=== PATIENT | male | born 1980 | race Caucasian/White ===

== ENCOUNTER 2018-02-06 08:52 | Observation (INO) ==
--- NOTE | 2018-02-06 09:00 | Emergency Department Note ---
ED Disposition Clinical Impression: Chest pain Disposition: Still a Patient Condition on Discharge: Good - Critical Care Critical Care Time: No Attestation: On , the high probability of a clinically significant, sudden or life th reatening deterioration of the following system(s) required my full and direct attention, intervention and personal management. The time I documented below is in addition to time spent performing reported procedures but includes the following listed in this critical care notation. Medical Decision Making - Medical Records MR Comment: [id number] call out to [facility], pt states pain free, then states maybe some jaw pain still, then says no. additional pain meds ordered. pt with some obesity, family history +, smokes, borderline dm, htn, ? chol. plan admit. 1056 linda Zabala, abelardo angiogram, desires cardiology consult. linda cr level. call out to cardiology. 1103 linda Hung they will see patient. 110[facility] cardiology MLP seeing patient now. - Bony Inquiry Pt receiving controlled substance: No Vital Signs: 02/06/18 08:53 02/06/18 09:03 02/06/18 09:30 Temperature 98 F 98 F Temperature Source Oral Oral Pulse Rate Pulse Rate [Left Radial] 76 76 79 Respiratory Rate 16 16 16 Blood Pressure Blood Pressure [Right Arm] 152/108 152/108 148/93 Blood Pressure Mean [Right Arm] 122 122 111 Blood Pressure Source Blood Pressure Source [Right Arm] Automatic Cuff Automatic Cuff Automatic Cuff Blood Pressure Position Blood Pressure Position [Right Arm] Sitting Sitting Sitting 02 Sat by Pulse Oximetry 97 97 96 Oxygen Delivery Method Room Air Room Air Room Air 02/06/18 10:10 02/06/18 11:01 02/06/18 11:37 Temperature Temperature Source Pulse Rate Pulse Rate [Left Radial] 81 75 76 Respiratory Rate Blood Pressure Blood Pressure [Right Arm] 140/89 130/91 128/85 Blood Pressure Mean [Right Arm] 106 104 99 Blood Pressure Source Blood Pressure Source [Right Arm] Automatic Cuff Automatic Cuff Automatic Cuff Blood Pressure Position Blood Pressure Position [Right Arm] Sitting Sitting Sitting 02 Sat by Pulse Oximetry 98 99 99 Oxygen Delivery Method Room Air Room Air 02/06/18 12:05 Temperature 98 F Temperature Source Oral Pulse Rate 79 Pulse Rate [Left Radial] Respiratory Rate 16 Blood Pressure 143/93 Blood Pressure [Right Arm] Blood Pressure Mean [Right Arm] Blood Pressure Source Automatic Cuff Blood Pressure Source [Right Arm] Blood Pressure Position Sitting Blood Pressure Position [Right Arm] 02 Sat by Pulse Oximetry Oxygen Delivery Method Room Air - Lab Data Lab Results 02/06/18 08:55: WBC 14.4 H, RBC 6.17, Hgb 17.5, Hct 52.9 H, MCV 85.7, MCH 28.4, MCHC 33.1, RDW 14.0, Plt Count 229, MPV 7.8, Neut % (Auto) 67.8, Lymph % (Auto) 23.1, [place] % (Auto) 6.5, Eos % (Auto) 2.0, Baso % (Auto) 0.5, Neut # (Auto) 9.8 H, Lymph # (Auto) 3.3, [place] # (Auto) 0.9, Eos # (Auto) 0.3, Baso # (Auto) 0.1 02/06/18 08:55: Sodium 139, Potassium 4.2, Chloride 105, Carbon Dioxide 22, Anion Gap 16.2 H, BUN 23 H, Creatinine 1.90 H, Estimated Creat Clear 82, Estimated GFR 40 L, Est GFR ( Amer) 49 L, Glucose 139 H, Calcium 9.6, Troponin I < 0.02 Result diagrams: 02/06/18 08:55 02/06/18 08:55 Orders (Tests/Meds): ED MEDICATIONS Generic Name Dose Route Start Last Admin Trade Name Freq PRN Reason Stop Dose Admin Diphenhydramine HCl 50 mg 02/06/18 12:09 Benadryl 50mg/1ml Vial IV 02/06/18 12:10 ONCE ONE Fentanyl Citrate 25 mcg 02/06/18 12:09 Fentanyl 250mcg/5ml Vial IV 02/07/18 12:10 Q3MINP PRN Moderate to Severe Pain Fentanyl Citrate 50 mcg 02/06/18 12:09 Fentanyl 250mcg/5ml Vial IV 02/07/18 12:10 Q3MINP PRN Moderate to Severe Pain Fentanyl Citrate 25 mcg 02/06/18 12:17 Fentanyl 250mcg/5ml Vial IV 02/07/18 11:45 Q3MINP PRN Moderate to Severe Pain Fentanyl Citrate 50 mcg 02/06/18 12:17 Fentanyl 250mcg/5ml Vial IV 02/07/18 11:45 Q3MINP PRN Moderate to Severe Pain Flumazenil 0.2 mg 02/06/18 12:09 Romazicon 0.1mg/Ml 5ml Vial IV 02/06/18 23:00 NEEDED PRN Sedation Flumazenil 0.2 mg 02/06/18 12:17 Romazicon 0.1mg/Ml 5ml Vial IV 02/06/18 23:00 NEEDED PRN Sedation Heparin Sodium (Porcine) 10,000 unit 02/06/18 12:09 Heparin 1,000 Units/Ml 10ml Vial (Certified Registered Nurse Practitioner) IV 02/06/18 16:10 NEEDED PRN Emergency [employer] Heparin Sodium/Sodium Chloride 3,000 unit 02/06/18 12:09 Heparin 1000 Units/500ml Ns (Certified Registered Nurse Practitioner) IV 02/06/18 12:10 ONCE ONE Sodium Chloride 1,000 mls @ 125 mls/hr 02/06/18 11:30 02/06/18 11:24 Sod Chlor 0.9% 1000ml Bag IV 03/08/18 11:29 125 mls/hr .Q8H SHANTELLE Administration Sodium Chloride 1,000 mls @ 25 mls/hr 02/06/18 12:15 Sod Chlor 0.9% 1000ml Bag IV 02/07/18 12:10 .Q25H SHANTELLE Lidocaine HCl 20 ml 02/06/18 12:09 Lidocaine 1% 20ml Mdv IJ 02/06/18 12:10 ONCE ONE Midazolam HCl 1 mg 02/06/18 12:09 Midazolam 2mg/2ml Vial IV 02/07/18 12:10 Q3MINP PRN Sedation Midazolam HCl 1 mg 02/06/18 12:09 Midazolam 1mg/Ml 5ml Vial IV 02/07/18 12:10 Q3MINP PRN Sedation Midazolam HCl 1 mg 02/06/18 12:17 Midazolam 2mg/2ml Vial IV 02/07/18 11:45 Q3MINP PRN Sedation Midazolam HCl 1 mg 02/06/18 12:17 Midazolam 1mg/Ml 5ml Vial IV 02/07/18 11:45 Q3MINP PRN Sedation Naloxone HCl 0.4 mg 02/06/18 12:09 Narcan 0.4mg/Ml Vial IV 02/07/18 12:10 Q5MINP PRN Decreased respirations Naloxone HCl 0.4 mg 02/06/18 12:17 Narcan 0.4mg/Ml Vial IV 02/07/18 11:45 Q5MINP PRN Decreased respirations Nitroglycerin 0.4 mg 02/06/18 08:56 Nitrostat 0.4mg Sl Tablet SL 03/08/18 08:55 Q5MINP PRN Chest Pain Nitroglycerin 800 mcg 02/06/18 12:09 Nitroglycerin 800mcg/8ml Syr (Certified Registered Nurse Practitioner) IV 02/07/18 12:10 NEEDED PRN Emergency [employer] Super[employer] Verapamil HCl 2.5 mg 02/06/18 12:09 Verapamil 2.5mg/Ml 2ml Vial IV 02/06/18 12:10 ONCE ONE Discontinued Medications Generic Name Dose Route Start Last Admin Trade Name Freq PRN Reason Stop Dose Admin Aspirin 324 mg 02/06/18 08:54 02/06/18 09:06 Aspirin 81mg Chewable Tablet PO 02/06/18 08:55 324 mg ONCE ONE Administration Fentanyl Citrate 25 mcg 02/06/18 11:45 Fentanyl 250mcg/5ml Vial IV 02/07/18 11:45 Q3MINP PRN Moderate to Severe Pain Fentanyl Citrate 50 mcg 02/06/18 11:45 Fentanyl 250mcg/5ml Vial IV 02/07/18 11:45 Q3MINP PRN Moderate to Severe Pain Flumazenil 0.2 mg 02/06/18 11:45 Romazicon 0.1mg/Ml 5ml Vial IV 02/06/18 23:00 NEEDED PRN Sedation Midazolam HCl 1 mg 02/06/18 11:45 Midazolam 2mg/2ml Vial IV 02/07/18 11:45 Q3MINP PRN Sedation Midazolam HCl 1 mg 02/06/18 11:45 Midazolam 1mg/Ml 5ml Vial IV 02/07/18 11:45 Q3MINP PRN Sedation Morphine Sulfate 2 mg 02/06/18 10:51 02/06/18 11:05 Morphine 4mg/Ml Syringe IV 02/06/18 10:52 2 mg ONCE ONE Administration Naloxone HCl 0.4 mg 02/06/18 11:45 Narcan 0.4mg/Ml Vial IV 02/07/18 11:45 Q5MINP PRN Decreased respirations Nitroglycerin 0.5 gm 02/06/18 10:52 02/06/18 11:05 Nitroglycerin 1 Inch Oint Udp TD 02/06/18 10:53 0.5 gm ONCE ONE Administration Ondansetron HCl 4 mg 02/06/18 10:51 02/06/18 11:05 Zofran 4mg/2ml Vial IV 02/06/18 10:52 4 mg ONCE ONE Administration Ticagrelor 180 mg 02/06/18 11:44 02/06/18 11:47 Brilinta 90mg Tablet PO 02/06/18 11:45 180 mg ONCE ONE Administration ORDERS Category Date Time Status Basic Metabolic Panel Stat Lab 02/06/18 12:09 Ordered Complete Blood Count Auto Diff Stat Lab 02/06/18 12:09 Ordered - ECG Data Tracing #1 ER EKG read by myself shows normal sinus rhythm rate of 77, no STEMI, normal axis, no QT prolongation, unremarkable EKG no wandering baseline EKG Tracing #2 ER EKG read by myself shows normal sinus rhythm rate of 77, no STEMI, normal axis, no QT prolongation, unremarkable EKG no wandering baseline EKG General Adult HPI - General Chief complaint: Chest Pain Stated complaint: chest pain Time Seen by Provider: 02/06/18 08:57 - History of Present Illness HPI narrative: Patient states that onset of achy chest pain 45 minutes prior to arrival was sweating and shortness of breath no complaint of nausea now but when the pain came on he did feel like he was going to vomit. Denies any pleuritic pain. No previous heart history does have history of hypertension pain does radiate up to his jaw. 4 over 10 currently - Related Data Home Medications Medication Instructions Recorded Confirmed Hydralazine HCl [Hydralazine HCl 25 mg PO DAILY 02/06/18 02/06/18 25mg Tablet] Losartan Potassium 25 mg PO DAILY 02/06/18 02/06/18 Metoprolol Succinate [Toprol XL 50 mg PO BID 02/06/18 02/06/18 50mg Tablet] Mycophenolate Mofetil [Cellcept] 250 mg PO BID 02/06/18 02/06/18 Tacrolimus [Prograf] 1 mg PO BID 02/06/18 02/06/18 Trazodone HCl 100 mg PO HS 02/06/18 02/06/18 Allergies Allergy/AdvReac Type Severity Reaction Status Date / Time From [facility] Allergy Unknown Uncoded 02/06/18 09:05 [facility] History I have reviewed the patient's past medical history: Yes ROS Obtained: Yes All systems reviewed & no additional complaints Physical Exam General Appearance: Diaphoretic Head: Normocephalic, without obvious abnormality, atraumatic. Eyes: conjunctiva/corneas clear ENT: Mucous membranes moist. Neck: No jugular venous distention. Cardiac: regular rate and rhythm Lungs: Clear to auscultation bilaterally Abdomen: Nontender, Nondistended, positive bowel sounds, no rebound : No CVA tenderness Extremities: no edema Musculoskeletal: No chest wall tenderness No Homans sign No calf tenderness No swelling in legs Skin: No rashes or lesions to exposed skin. Neurologic: Alert. No gross focal deficits Psychiatric: Normal affect - General General appearance: alert - Respiratory Respiratory exam: Present: normal lung sounds bilaterally - Cardiovascular Cardiovascular exam: Present: regular rate - Neurological Exam Neurological exam: Present: alert
[2018-02-06 09:12] LABS: Basophils # 0.1 K/mm3 (0-0.2); Basophils % 0.5 % (0.1-2.0); Eosinophils # 0.3 K/mm3 (0.0-0.4); Hematocrit 52.9 % (42.0-52.0); Hemoglobin 17.5 g/dL (14.1-18.0); Lymphocytes # 3.3 K/mm3 (0.7-4.5); Lymphocytes % 23.1 K/mm3 (10-50); Mean Corpuscular HGB Conc 33.1 g/dL (31.8-35.4); Mean Corpuscular Hemoglobin 28.4 pg (27.0-31.2); Mean Corpuscular Volume 85.7 fl (80-94); Mean Platelet Volume 7.8 fl (7.4-10.4); Monocytes # 0.9 K/mm3 (0.1-1.0); Monocytes % 6.5 % (1.7-9.3); Neutrophils # 9.8 K/mm3 (1.8-7.8); Neutrophils % 67.8 % (37.0-80.0); Platelet Count 229 K/mm3 (142-424); Red Blood Count 6.17 M/mm3 (4.60-6.20); White Blood Count 14.4 K/mm3 (4.8-10.8)
[2018-02-06 09:25] LABS: Anion Gap 16.2 mEq/L (5-15); Blood Urea Nitrogen 23 mg/dL (7-18); Calcium 9.6 mg/dL (8.5-10.1); Carbon Dioxide 22 mmol/L (21.0-32.0); Chloride 105 mmol/L (98-107); Glucose 139 mg/dL (74-106); Potassium 4.2 mmoL/L (3.5-5.1); Sodium 139 mmol/L (136-145)
--- NOTE | 2018-02-06 11:36 | Consult Report ---
History of Present Illness Consult date: 02/06/18 Requesting physician: Angel Gagnon Consult reason: chest pain Chief complaint: chest pain Additional Medical History:: 1. Hypertension since age 18 A. History of renal failure requiring dialysis B. Status post living donor renal transplant approximately 2009, on CellCept and Prograf therapy with routine follow-up by nephrology 2. Tobacco use, 1 pack per day, since age 16 3. Strong family history of coronary artery disease in grandfather and grandfather's siblings in their 30s and 40s 4. Hyperlipidemia 5. Elevated blood sugars, evaluation ongoing per PCP History of present illness: 37-year-old white male with hypertension, tobacco use and history of renal failure requiring transplant was seen in the emergency department today for recurrent episodes of chest pain with jaw pain. Patient states symptoms started after chasing his dog this morning. Symptoms improved with rest but returned at rest and resolved with nitroglycerin tablet and paste combination in the ER. Patient was reportedly pale with diaphoresis on arrival to the ER which improved significantly with resolution of chest pain. Initial troponin is normal. EKG is sinus rhythm with mild ST abnormalities that improved on second EKG just 7 min later. Patient is currently pain-free with no jaw pain on nitroglycerin paste. Dr. Crandall did see the patient in the ER and recommended cardiac catheterization and the patient agrees to proceed. Risks, benefits and procedure explained to the patient. [facility] History Medical History: Reports:: Hyperlipidemia, Hypertension, Renal Disease - *Social History Smoking Status: Current every day smoker Tobacco Type: cigarettes Alcohol Intake: never - Psychiatric History Expresses thoughts of harming self/others: None Suicide Plan Description: No Plan Meds Home Medications Medication Instructions Recorded Confirmed Type Hydralazine HCl [Hydralazine HCl 25 mg PO DAILY 02/06/18 02/06/18 History 25mg Tablet] Losartan Potassium 25 mg PO DAILY 02/06/18 02/06/18 History Metoprolol Succinate [Toprol XL 50 mg PO BID 02/06/18 02/06/18 History 50mg Tablet] Mycophenolate Mofetil [Cellcept] 250 mg PO BID 02/06/18 02/06/18 History Tacrolimus [Prograf] 1 mg PO BID 02/06/18 02/06/18 History Trazodone HCl 100 mg PO HS 02/06/18 02/06/18 History Allergies Allergy/AdvReac Type Severity Reaction Status Date / Time From [facility] Allergy Unknown Uncoded 02/06/18 09:05 Review of Systems - *Cardiovascular Reports chest pain, Reports excessive sweating, Reports shortness of breath with activity - *Respiratory Reports shortness of breath with activity - *Gastrointestinal Denies abdominal pain - *Musculoskeletal Denies joint pain Exam Vital signs and Labs for Last 24 Hours: Temp Pulse Resp BP Pulse Ox 98 F 75 16 130/91 99 02/06/18 09:03 02/06/18 11:01 02/06/18 09:30 02/06/18 11:01 02/06/18 11:01 Laboratory Results - last 24 hr 02/06/18 08:55: WBC 14.4 H, RBC 6.17, Hgb 17.5, Hct 52.9 H, MCV 85.7, MCH 28.4, MCHC 33.1, RDW 14.0, Plt Count 229, MPV 7.8, Neut % (Auto) 67.8, Lymph % (Auto) 23.1, [place] % (Auto) 6.5, Eos % (Auto) 2.0, Baso % (Auto) 0.5, Neut # (Auto) 9.8 H, Lymph # (Auto) 3.3, [place] # (Auto) 0.9, Eos # (Auto) 0.3, Baso # (Auto) 0.1 02/06/18 08:55: Sodium 139, Potassium 4.2, Chloride 105, Carbon Dioxide 22, Anion Gap 16.2 H, BUN 23 H, Creatinine 1.90 H, Estimated Creat Clear 82, Estimated GFR 40 L, Est GFR ( Amer) 49 L, Glucose 139 H, Calcium 9.6, Troponin I < 0.02 I & O for Last 24 hours: Intake & Output 02/03/18 02/04/18 02/05/18 02/06/18 11:59 11:59 11:59 11:59 Weight 241 lb - *Routine Neck Exam Present: supple. Absent: lymphadenopathy - *Routine Respiratory Exam Present: CTA bilaterally. Absent: rhonchi, wheezes - *Routine Cardiovascular Exam Present: RRR. Absent: murmur, gallop, rubs - *Routine Extremities Exam Absent: cyanosis, clubbing, edema - *Routine Neurological Exam Present: alert, oriented X3, moving all extremities Assessment and Plan (1) Acute coronary syndrome Current visit: Yes Status: Acute Category: Medical Code(s): I24.9 - Acute ischemic heart disease, unspecified (2) Hypertension Current visit: Yes Status: Acute Category: Medical Code(s): I10 - Essential (primary) hypertension (3) Tobacco use Current visit: Yes Status: Acute Category: Social Hx Code(s): Z72.0 - Tobacco use (4) History of renal transplant Current visit: Yes Status: Acute Category: Medical Code(s): Z94.0 - Kidney transplant status (5) Family history of early CAD Current visit: Yes Status: Acute Category: Medical Code(s): Z82.49 - Family history of ischemic heart disease and other diseases of the circulatory system - Assessment and plan all Dx Assessment and Plan for all problems:: 1. Patient did receive aspirin this morning and will add Brilinta 180 mg now. Continue nitroglycerin paste. Continue home medications of metoprolol and losartan. 2. Patient will go for left heart catheterization for further evaluation. Recommendations pending results.
--- NOTE | 2018-02-06 13:38 | History & Physical Report ---
*Admission Date: 02/06/18 *Chief complaint: Chest pain *History of present illness: 1. Hypertension since age 18 A. History of renal failure requiring dialysis B. Status post living donor renal transplant approximately 2009, on CellCept and Prograf therapy with routine follow-up by nephrology 2. Tobacco use, 1 pack per day, since age 16 3. Strong family history of coronary artery disease in grandfather and grandfather's siblings in their 30s and 40s 4. Hyperlipidemia 5. Elevated blood sugars, evaluation ongoing per PCP History of present illness: 37-year-old white male with hypertension, tobacco use and history of renal failure requiring transplant was seen in the emergency department today for recurrent episodes of chest pain with jaw pain. Patient states symptoms started after chasing his dog this morning. Symptoms improved with rest but returned at rest and resolved with nitroglycerin tablet and paste combination in the ER. Patient was reportedly pale with diaphoresis on arrival to the ER which improved significantly with resolution of chest pain. Initial troponin is normal. EKG is sinus rhythm with mild ST abnormalities that improved on second EKG just 7 min later. Patient is currently pain-free with no jaw pain on nitroglycerin paste. Dr. Crandall did see the patient in the ER and recommended cardiac catheterization and the patient agreed to proceed. [facility] History Medical History: Reports:: Hyperlipidemia, Hypertension, Renal Disease - *Social History Smoking Status: Current every day smoker Tobacco Type: cigarettes Alcohol Intake: never - Psychiatric History Expresses thoughts of harming self/others: None Suicide Plan Description: No Plan Review of Systems - Review of Systems Review of systems:: pertinent systems reviewed and negative unless documented below - Constitutional Denies body ache(s), Denies chills - Eyes Denies blind spots - ENT Denies bleeding gums, Denies change in voice - *Cardiovascular Reports chest pain, Reports chest pain with activity, Reports shortness of breath, Reports shortness of breath with activity, Denies irregular heart rhythm, Denies leg swelling - *Respiratory Denies change in phlegm color, Denies chest congestion, Denies cough - *Gastrointestinal Denies abdominal pain Meds Home Medications Medication Instructions Recorded Confirmed Type Hydralazine HCl [Hydralazine HCl 25 mg PO DAILY 02/06/18 02/06/18 History 25mg Tablet] Losartan Potassium 25 mg PO DAILY 02/06/18 02/06/18 History Metoprolol Succinate [Toprol XL 50 mg PO BID 02/06/18 02/06/18 History 50mg Tablet] Mycophenolate Mofetil [Cellcept] 250 mg PO BID 02/06/18 02/06/18 History Tacrolimus [Prograf] 1 mg PO BID 02/06/18 02/06/18 History Trazodone HCl 100 mg PO HS 02/06/18 02/06/18 History Allergies Allergy/AdvReac Type Severity Reaction Status Date / Time pseudoephedrine Allergy Unknown Verified 02/06/18 12:35 allergy reaction Exam Vital signs and Labs for Last 24 Hours: Temp Pulse Resp BP Pulse Ox 98 F 76 12 128/90 98 02/06/18 13:30 02/06/18 13:30 02/06/18 13:30 02/06/18 13:30 02/06/18 13:30 Laboratory Results - last 24 hr 02/06/18 08:55: WBC 14.4 H, RBC 6.17, Hgb 17.5, Hct 52.9 H, MCV 85.7, MCH 28.4, MCHC 33.1, RDW 14.0, Plt Count 229, MPV 7.8, Neut % (Auto) 67.8, Lymph % (Auto) 23.1, [place] % (Auto) 6.5, Eos % (Auto) 2.0, Baso % (Auto) 0.5, Neut # (Auto) 9.8 H, Lymph # (Auto) 3.3, [place] # (Auto) 0.9, Eos # (Auto) 0.3, Baso # (Auto) 0.1 02/06/18 08:55: Sodium 139, Potassium 4.2, Chloride 105, Carbon Dioxide 22, Anion Gap 16.2 H, BUN 23 H, Creatinine 1.90 H, Estimated Creat Clear 82, Estimated GFR 40 L, Est GFR ( Amer) 49 L, Glucose 139 H, Calcium 9.6, Troponin I < 0.02 I & O for Last 24 hours: Intake & Output 02/04/18 02/05/18 02/06/18 02/07/18 11:59 11:59 11:59 11:59 Weight 241 lb 241 lb 7 oz Narrative: Patient examined post left heart cath, appropriate dressing on left radial artery area. Lungs are clear, heart rate regular without murmurs. Abdomen soft nontender. Oropharynx clear, no JVD, ENT exam otherwise clear. No clubbing, cyanosis or edema. Assessment and Plan (1) Acute coronary syndrome Current visit: Yes Status: Acute Category: Medical Code(s): I24.9 - Acute ischemic heart disease, unspecified (2) Hypertension Current visit: Yes Status: Acute Category: Medical Code(s): I10 - Essential (primary) hypertension (3) Tobacco use Current visit: Yes Status: Acute Category: Social Hx Code(s): Z72.0 - Tobacco use (4) History of renal transplant Current visit: Yes Status: Acute Category: Medical Code(s): Z94.0 - Kidney transplant status (5) Family history of early CAD Current visit: Yes Status: Acute Category: Medical Code(s): Z82.49 - Family history of ischemic heart disease and other diseases of the circulatory system - Assessment and plan all Dx Assessment and Plan for all problems:: Patient doing well status post left heart cath. Anticipate discharge tomorrow if remains stable. Continue current medications. Follow creatinine closely tonight and tomorrow morning.
--- NOTE | 2018-02-06 15:42 | Pharmacy Consult Notes ---
[facility] Pharmacy VTE Monitoring - Patient Demographics Allergies/Adverse Reactions: Patient Allergies pseudoephedrine Allergy (Verified 02/06/18 12:35) Unknown allergy reaction Height: 1.75 m Weight: 109.514 kg Patient Problems: Current Active Problems Chest pain (Acute) Acute coronary syndrome (Acute) Hypertension (Acute) Tobacco use (Acute) History of renal transplant (Acute) Family history of early CAD (Acute) - VTE Risk Labs: VTE Related Lab Results Hgb 17.5 g/dL (14.1-18.0) 02/06/18 08:55 Hct 52.9 % (42.0-52.0) H 02/06/18 08:55 Plt Count 229 K/mm3 (142-424) 02/06/18 08:55 BUN 23 mg/dL (7-18) H 02/06/18 08:55 Creatinine 1.90 mg/dL (0.70-1.30) H 02/06/18 08:55 Estimated Creat Clear 82 mL/min (0-300) 02/06/18 08:55 Was VTE Risk Assessment Performed: Yes VTE Risk Level: Very Low Risk - Prophylaxis Location of Applied Device: Refused
[2018-02-07 06:49] LABS: Anion Gap 12.4 mEq/L (5-15); Potassium 4.4 mmoL/L (3.5-5.1)
[2018-02-07 07:18] LABS: Calcium 8.6 mg/dL (8.5-10.1)
[2018-02-07 07:22] LABS: Basophils % 0.2 % (0.1-2.0); Eosinophils # 0.1 K/mm3 (0.0-0.4); Eosinophils % 1.1 % (0.1-12.0); Hematocrit 45.7 % (42.0-52.0); Lymphocytes # 1.6 K/mm3 (0.7-4.5); Lymphocytes % 18.3 K/mm3 (10-50); Mean Corpuscular HGB Conc 33.2 g/dL (31.8-35.4); Mean Corpuscular Hemoglobin 28.3 pg (27.0-31.2); Mean Corpuscular Volume 85.3 fl (80-94); Mean Platelet Volume 6.9 fl (7.4-10.4); Monocytes # 0.6 K/mm3 (0.1-1.0); Monocytes % 6.5 % (1.7-9.3); Neutrophils # 6.4 K/mm3 (1.8-7.8); Neutrophils % 73.9 % (37.0-80.0); Platelet Count 114 K/mm3 (142-424); Red Blood Count 5.36 M/mm3 (4.60-6.20); Red Cell Distribution Width 13.9 % (11.5-17.5); White Blood Count 8.7 K/mm3 (4.8-10.8)
[2018-02-07 07:28] LABS: Hemoglobin 15.4 g/dL (14.1-18.0)
--- NOTE | 2018-02-07 12:31 | Discharge Summary ---
General - General Admission date:: 02/06/18 Discharge date: 02/07/18 HPI HPI: 1. Hypertension since age 18 A. History of renal failure requiring dialysis B. Status post living donor renal transplant approximately 2009, on CellCept and Prograf therapy with routine follow-up by nephrology 2. Tobacco use, 1 pack per day, since age 16 3. Strong family history of coronary artery disease in grandfather and grandfather's siblings in their 30s and 40s 4. Hyperlipidemia 5. Elevated blood sugars, evaluation ongoing per PCP History of present illness: 37-year-old white male with hypertension, tobacco use and history of renal failure requiring transplant was seen in the emergency department today for recurrent episodes of chest pain with jaw pain. Patient states symptoms started after chasing his dog this morning. Symptoms improved with rest but returned at rest and resolved with nitroglycerin tablet and paste combination in the ER. Patient was reportedly pale with diaphoresis on arrival to the ER which improved significantly with resolution of chest pain. Initial troponin is normal. EKG is sinus rhythm with mild ST abnormalities that improved on second EKG just 7 min later. Patient is currently pain-free with no jaw pain on nitroglycerin paste. Dr. Crandall did see the patient in the ER and recommended cardiac catheterization and the patient agreed to proceed. Hospital Course Hospital Course: Patient presents to the emergency room due to chest pain. Found to have some ST elevation and right bundle branch block. Concern for STEMI. Cardiology co nsulted, troponins elevated. Emergently taken to [facility] with placement of a single drug-eluting stent in proximal LAD. Patient tolerated procedure well with no adverse events. Flow restored to heart. Patient asymptomatic the following morning. Improvement in kidney function on day of discharge. Plan to continue dual antiplatelet therapy (for 1 year), and goal-directed therapy status post IL at time of discharge. Dynamically stable, no events on telemetry, afebrile, tolerating regular diet and oral medications. Medically stable for discharge Objective Vital signs: Temp Pulse Resp BP Pulse Ox 97.9 F 67 18 131/83 98 02/07/18 04:00 02/07/18 12:11 02/07/18 12:11 02/07/18 12:11 02/07/18 12:11 - *Routine HEENT Exam Head: Present: normocephalic, atraumatic Eye: Present: EOMI, PERRL, normal accommodation ENT: Present: mucous membranes moist - *Routine Neck Exam Present: supple, full ROM. Absent: JVD - *Routine Respiratory Exam Present: CTA bilaterally. Absent: accessory muscle use, prolonged expiratory phase, rales, wheezes, crackles - *Routine Cardiovascular Exam Present: RRR, Normal S1, Normal S2. Absent: murmur, gallop - *Routine Abdominal Exam Present: soft, normoactive bowel sounds - *Routine Rectal Exam Patient deferred: visual exam - *Routine Exam Patient deferred: penile exam - *Routine Extremities Exam Absent: cyanosis, clubbing, edema - *Routine Skin Exam Present: intact. Absent: cyanosis, erythema Comments: Trocar insertion right radial artery healing well, no ecchymosis, bleeding, or hematoma. - *Routine Neurological Exam Present: alert, oriented X3, CN II-XII intact. Absent: altered mental status - Routine Psychiatric Exam Present: normal affect, normal thought process, cooperative Results Labs on day of discharge: Labs from last 24 hours 02/07/18 02/07/18 02/06/18 05:55 05:55 21:34 WBC 8.7 D RBC 5.36 Hgb 15.4 D Hct 45.7 MCV 85.3 MCH 28.3 MCHC 33.2 RDW 13.9 Plt Count 114 L D MPV 6.9 L Neut % (Auto) 73.9 Lymph % (Auto) 18.3 [place] % (Auto) 6.5 Eos % (Auto) 1.1 Baso % (Auto) 0.2 Neut # (Auto) 6.4 Lymph # (Auto) 1.6 [place] # (Auto) 0.6 Eos # (Auto) 0.1 Baso # (Auto) 0.0 Activated Clotting Time Sodium 140 Potassium 4.4 Chloride 107 Carbon Dioxide 25 Anion Gap 12.4 BUN 19 H Creatinine 1.61 H Estimated Creat Clear 100 Estimated GFR 49 L Est GFR ( Amer) 59 D Glucose 98 D Calcium 8.6 D Troponin I 0.46 H 02/06/18 02/06/18 15:24 12:57 WBC RBC Hgb Hct MCV MCH MCHC RDW Plt Count MPV Neut % (Auto) Lymph % (Auto) [place] % (Auto) Eos % (Auto) Baso % (Auto) Neut # (Auto) Lymph # (Auto) [place] # (Auto) Eos # (Auto) Baso # (Auto) Activated Clotting Time > 400 H* Sodium Potassium Chloride Carbon Dioxide Anion Gap BUN Creatinine Estimated Creat Clear Estimated GFR Est GFR ( Amer) Glucose Calcium Troponin I 0.22 H DS: Diagnosis - Discharge Diagnosis (1) Acute coronary syndrome Status: Acute Problem details: Status post intervention, continue dual antiplatelet therapy consisting of aspirin and ticagrelor (2) Hypertension Status: Acute Problem details: Continue control with Toprol and valsartan (3) Tobacco use Status: Acute Problem details: Counseled on cessation his smoking significantly increases his risk for repeat IL. Patient is prepared to quit. Nicotine replacement while inpatient. (4) History of renal transplant Status: Acute Problem details: Continue CellCept and Prograf, kidney function returned to baseline creatinine of 1.6 today (5) Family history of early CAD Status: Acute Discharge Plan - Patient Discharge Instructions ACTIVITY: Continue current activity, Ambulate as tolerated DIET: low fat, low cholesterol - Follow up Plan Follow up with: Angel Gagnon MD [Primary Care Provider] - 1 week Roel Crandall MD [Staff Physician] - 2 weeks Disposition: Home, Self-Senior Living Medications: Home Medications Medication Instructions Recorded Confirmed Type Colchicine [Colcrys 0.6mg tablet] 0.6 mg PO TIDP PRN 02/06/18 02/06/18 History Fluticasone Propionate [Flonase 2 spr NOSTRIL-B BID 02/06/18 02/06/18 History 50mcg nasal spray 16gm] Hydralazine HCl 50 mg PO BID 02/06/18 02/06/18 History Losartan Potassium [Cozaar] 50 mg PO DAILY 02/06/18 02/06/18 History Metoprolol Tartrate 50 mg PO BID 02/06/18 02/06/18 History Mycophenolate Mofetil [Cellcept] 1,000 mg PO BID 02/06/18 02/06/18 History Tacrolimus [Prograf] 2 mg PO BID 02/06/18 02/06/18 History Trazodone HCl [Desyrel 50mg tablet] 50 mg PO HS 02/06/18 02/06/18 History guaiFENesin [Mucinex 600mg tablet] 600 mg PO Q12H 02/06/18 02/06/18 History Prescriptions/Medication Reconciliation: New Nicotine [Nicoderm 21mg/24hr patch] 21 mg TD DAILYP PRN 30 Days #30 patch.td24 PRN Reason: Nicotine Cravings Metoprolol Succinate [Toprol XL 50mg Tablet] 50 mg PO DAILY 30 Days #30 tablet Nitroglycerin [Nitrostat 0.4mg SL Tablet] 0.4 mg SL Q5MINP PRN 30 Days #100 tab.subl PRN Reason: Chest Pain Ticagrelor [Brilinta 90mg Tablet] 90 mg PO BID 30 Days #60 tablet Aspirin [Aspirin 81mg EC Tab] 81 mg PO DAILY tablet. Continue Tacrolimus [Prograf] 2 mg PO BID Mycophenolate Mofetil [Cellcept] 1,000 mg PO BID guaiFENesin [Mucinex 600mg tablet] 600 mg PO Q12H Trazodone HCl [Desyrel 50mg tablet] 50 mg PO HS Hydralazine HCl 50 mg PO BID Losartan Potassium [Cozaar] 50 mg PO DAILY Colchicine [Colcrys 0.6mg tablet] 0.6 mg PO TIDP PRN PRN Reason: GOUT FLARES Fluticasone Propionate [Flonase 50mcg nasal spray 16gm] 2 spr NOSTRIL-B BID Discontinued Metoprolol Tartrate 50 mg PO BID
== END 2018-02-07 13:15 | disposition home or self-care (01) ==
LOC: ER 08:52 → SDC 12:16 → 2ND 12:16
PROVIDERS: ADMIT Internal Medicine Adolescent Medicine; ATTEND Internal Medicine Adolescent Medicine

== ENCOUNTER 2018-02-17 10:42 | Outpatient (RCR) | payer MEDICARE, SELFPAY | END 2018-02-17 10:43 | disposition home or self-care (01) | LOC: PT 10:42 | PROVIDERS: PCP Internal Medicine Adolescent Medicine; Visit Provider Internal Medicine | DX: Z95.5 Presence of coronary angioplasty implant and graft (principal) | CPT/HCPCS: 93798 ==

== ENCOUNTER → 2018-02-24 10:27 | Outpatient (CLI) | payer MEDICARE, SELFPAY ==
--- NOTE | 2018-02-24 10:28 | CA_ITS ---
PROCEDURE: 2-D M-mode and color Doppler study INDICATIONS FOR THE TEST: Chest pain COPD Heart Murmur Tobacco SmokingEX Palpitations Fatigue+ Syncope Edema Hypertension+Diabetes Mellitus Rheumatic Fever SOB VELIZ Obesity+Hyperlipidemia+ Family History HD Additional History KIDNEY TRANSPLANT, STEMI, STENT PATIENT INFORMATION HEIGHT: 69 WEIGHT:233 GENDER: Male B/P:135/80 2-D/M-MODE INTERPRETATION: 2-D MEASUREMENTS OBSERVED VALUES IN CMS Right Ventricular Dimension (RVDd) 2.5 Interventricular Septum (Thickness)(IVsd) 1.5 Left Ventricular Internal Dimensions(LVIDd) 5.1 Left Ventricular Posterior Wall (Thickness)(LVPWd) 0.9 Aortic Root 3.3 Aortic Cusp Separation 2.3 Left Atrial Dimensions (LAD) 3.7 2D 1. Left atrium is mildly enlarged, left ventricle is normal size, mild concentric left ventricular hypertrophy, visually estimated ejection fraction 55% with no regional wall motion abnormality. 2. The right atrium and right ventricle are normal size and contractility. 3. The aortic valve is minimally thickened and fibrosed. 4. The mitral and tricuspid valve leaflets are grossly normal. 5. The pulmonic valve is poorly visualized. 6. No significant pericardial effusion noted. DOPPLER INTERROGATION: Doppler interrogation of the aortic, mitral and tricuspid valvular presence of mild mitral and tricuspid regurgitation, tricuspid regurgitant jet velocity is insufficient for calculation of the right ventricular systolic pressure, grade 1 diastolic dysfunction seen without tissue Doppler evidence of raised left atrial pressure. CONCLUSION: 1. Mildly enlarged left atrium, normal left ventricular size, mild concentric left ventricular hypertrophy, visually estimated ejection fraction 55% with no obvious regional wall motion abnormality, grade 1 diastolic dysfunction seen without tissue Doppler evidence of raised left atrial pressure. 2. Mild mitral and tricuspid regurgitation 3. No significant pericardial effusion noted.
--- NOTE | 2018-02-24 10:28 | CI_ITS ---
Cerebrovascular Exam Indications: 785.9 Bruit. IMPRESSIONS 1. The bilateral vertebral arteries are patent with normal antegrade flow. 2. Study suggests less than 20% stenosis involving the right internal carotid artery and the left internal carotid artery. Carotid duplex study. Complete study and Doppler flow study including spectral analysis, color and kearney scale imaging. Height: Height: 175.3cm. Height: 69in. Weight: Weight: 105.7kg. Weight: 232.5lb. Body mass index: BMI: 34.4kg/m^2. Body surface area: BSA: 2.31m^2. Location: Vascular laboratory. Patient status: Outpatient. Tables: Arterial flow: + +--------+--------+ Location V sys V ed + +--------+--------+ Right CCA - proximal 113cm/s 21.2cm/s + +--------+--------+ Right CCA - distal 107cm/s 24.4cm/s + +--------+--------+ Right ECA 93.7cm/s -------- + +--------+--------+ Right ICA - proximal 72.8cm/s 24.8cm/s + +--------+--------+ Right ICA - mid 79.4cm/s 29.2cm/s + +--------+--------+ Right ICA - distal 88.2cm/s 36.4cm/s + +--------+--------+ Right vertebral 54.5cm/s -------- + +--------+--------+ Left CCA - proximal 155cm/s 32.2cm/s + +--------+--------+ Left CCA - distal 138cm/s 33.8cm/s + +--------+--------+ Left ECA 107cm/s -------- + +--------+--------+ Left ICA - proximal 71.1cm/s 24.8cm/s + +--------+--------+ Left ICA - mid 77.7cm/s 29.8cm/s + +--------+--------+ Left ICA - distal 89.9cm/s 35.8cm/s + +--------+--------+ Left vertebral 46.3cm/s -------- + +--------+--------+ Velocity ratios: + + + + + + Right, V sys Right, V ed Left, V sys Left, V ed + + + + + + Max ICA/dist CCA 0.82 1.49 0.65 1.06 + + + + + + (Report amended ) Electronically signed by: Lazaro Marrero [id number]
== END ==
PROVIDERS: PCP Internal Medicine Adolescent Medicine; Visit Provider Internal Medicine Cardiovascular Disease
DX: I10 Essential (primary) hypertension (principal); I25.10 Atherosclerotic heart disease of native coronary artery without angina pectoris; R09.89 Other specified symptoms and signs involving the circulatory and respiratory systems; E78.2 Mixed hyperlipidemia; R53.83 Other fatigue
CPT/HCPCS: 93306; 93880

== ENCOUNTER → 2018-03-31 20:10 | Outpatient (CLI) | payer MEDICARE, SELFPAY | PROVIDERS: PCP Internal Medicine Adolescent Medicine; Visit Provider Internal Medicine Cardiovascular Disease | DX: G47.33 Obstructive sleep apnea (adult) (pediatric) (principal); I10 Essential (primary) hypertension; G47.10 Hypersomnia, unspecified; R06.83 Snoring | CPT/HCPCS: 95810 ==

== ENCOUNTER → 2018-06-04 15:24 | Outpatient (CLI) | payer MEDICARE, SELFPAY ==
--- NOTE | 2018-06-04 15:30 | XR_ITS ---
XR foot LT min 3V HISTORY: ITS.REASON: BILATERAL HEEL PAIN ORDERING PHYSICIAN: Angel Gagnon MD PATIENT AGE: 38 years COMPARISON: Right foot same date FINDINGS: No fracture or dislocation. No lytic or blastic change. There is normal mineralization.. The joint spaces are well-preserved. No significant degenerative/arthritic changes. No erosive changes evident. There are small spurs at the insertion of plantar tendon and Achilles tendon. The soft tissues are normal. IMPRESSION: Small calcaneal spurs is noted otherwise negative left foot
--- NOTE | 2018-06-04 15:30 | XR_ITS ---
XR foot RT min 3V HISTORY: ITS.REASON: BILATERAL HEEL PAIN ORDERING PHYSICIAN: Angel Gagnon MD PATIENT AGE: 38 years COMPARISON: Left foot same date FINDINGS: No fracture or dislocation. No lytic or blastic change. There is normal mineralization.. The joint spaces are well-preserved except for minor joint space narrowing MP joints great toe. There Is a very tiny calcaneal spur at the insertion of the plantar tendon and a small spur at the insertion of the Achilles tendon. The soft tissues appear normal. IMPRESSION: Tiny calcaneal spurs along with minor osteoarthritic change MP joints great toe
== END ==
PROVIDERS: PCP Internal Medicine Adolescent Medicine; Visit Provider Internal Medicine Adolescent Medicine
DX: M79.672 Pain in left foot (principal); M79.671 Pain in right foot
CPT/HCPCS: 73630

== ENCOUNTER → 2018-06-18 07:14 | Outpatient (CLI) | payer MEDICARE, SELFPAY ==
--- NOTE | 2018-06-18 07:16 | NM_ITS ---
History and Indications: Coronary artery disease, history of CO, angioplasty stenting, hypertension, family history, chest pain, palpitations and fatigue Procedure: Patient received a 0.4 mg of intravenous Lexiscan, resting heart rate was 76 bpm resting blood pressure 141/82, with Lexiscan maximum heart rate achieved was 106 bpm which is less than 85% of the maximum predicted heart rate and a blood pressure was 127/73. With Lexiscan patient denied any complained of chest pain or shortness of breath. Electrocardiogram: Resting electrocardiogram showed sinus rhythm nonspecific ST-T changes, with Lexiscan there is less than 1.[address] segment depression noted from the baseline EKG. The EKG portion of the Lexiscan Myoview is nondiagnostic. Cardiac stress and resting SPECT images: Cardiac stress and resting SPECT images were obtained using technetium 99 Myoview 31.5 mCi stress and 10.5 mCi at rest. Gated SPECT further analysis of segmental wall motion and calculation of the ejection fraction also done. Cardiac stress and rest SPECT images show uniform myocardial activity without segmental perfusion abnormality, computer derived ejection fraction is 56% with no regional wall motion abnormality, right ventricle is normal size and contractility. Conclusion: 1. The EKG portion of the Lexiscan Myoview is nondiagnostic. 2. No scintigraphic evidence of reversible ischemia seen, computer derived ejection fraction 56% with no regional wall motion abnormality, right ventricle is normal size and contractility. 3. Normal Lexiscan Myoview study.
--- NOTE | 2018-06-18 11:02 | HMH.ITSHM ---
Current Home Medications as stated by this patient Too Castellano or patient representative. []metoprolol clopidrel atorvastatin losartan flonase trazodone
== END ==
PROVIDERS: PCP Internal Medicine Adolescent Medicine; Visit Provider Urology
DX: I20.9 Angina pectoris, unspecified; I10 Essential (primary) hypertension; Z72.0 Tobacco use; Z94.0 Kidney transplant status; Z95.5 Presence of coronary angioplasty implant and graft
CPT/HCPCS: 78452; 93017; A9502; J2785

== ENCOUNTER 2018-06-25 13:00 | Outpatient (RCR) | payer MEDICARE, SELFPAY ==
--- NOTE | 2018-06-22 10:52 | HMH.PTOPEV ---
PT Outpatient Evaluation Rehab PT Outpatient Evaluation Start: 06/22/18 10:20 Freq: Status: Active Protocol: Document 06/22/18 10:22 CARMELA (Rec: 06/22/18 10:51 CARMELA [id number]) Electronically Signed By Kali Hernandez, ROXY 06/22/18 10:22 Outpatient Therapy Subjective History Subjective History THis is the initial Physical Therapy evaluation for Too Castellano. Pt is a 38 y/o male referred to PT for c/o R achilles and heel pain. Pt reports long history of B heel pain. Pt reports pain began insidiously in 2002. Pt reports intermittant bouts since then, reports this bout began on May 31 after wearing boots and being on feet for extended period of time. Chief Complaint Pain Stiff Swelling Symptom Type Sharp Symptoms Relieved By Rest/Positioning Heat OTC Meds Symptoms Aggravated By Standing Physical Activity Walking Prior Functional Limitations Recreation Activity Walking Stairs Current Functional Limitations Recreation Activity Walking Stairs Symptom Description Intermittent Level of pain today (0-10) 0 Pain scale - at its best (0-10) 0 Pain scale - at its worst (0-10) 7 Ankle/Foot Eval Gait Observation General Gait Pattern Observation Antalgic Gait Decrease Weight Bear (R) Decrease Stride Lngth (L) Palpation Tenderness right Ankle/Foot Palpation Findings Tenderness Ankle/Foot Palpation Overall Comment TTP along calcaneal insertion of achilles ROM left Ankle/Foot Dorsiflexion w/Knee Extended 10 Active Range Motion (degrees) Ankle/Foot Plantar Flexion Active Range 60 of Motion (degrees) right Ankle/Foot Dorsiflexion w/Knee Extended -10 from neutral Passive Range (degrees) Ankle/Foot Plantar Flexion Active Range 60 of Motion (degrees) Ankle/Foot ROM Limitations Soft Tissue Tightness Pain MMT left Ankle Dorsiflexion Strength Grade 5 Normal Ankle Plantarflexion Strength Grade 5 Normal Foot Eversion Stre
== END 2018-06-25 13:05 | disposition home or self-care (01) ==
LOC: PT 13:00
PROVIDERS: Visit Provider Podiatrist
DX: M76.61 Achilles tendinitis, right leg (principal)
CPT/HCPCS: 97010; 97033; 97110; 97140; 97163

== ENCOUNTER 2021-01-11 12:59 | Outpatient (CLI) | payer MEDICARE, MEDICAID, SELFPAY ==
[2021-01-11 13:00] VITALS: BMI 33.5
[2021-01-11 13:05] VITALS: BP 154/73; PULSE 76; RESP 18; TEMP 36.6; O2SAT 98
[2021-01-11 13:17] LABS: Chloride 101 mmol/L (98-107); Sodium 130 mmol/L (136-145)
[2021-01-11 13:18] LABS: Potassium 3.9 mmoL/L (3.5-5.1)
[2021-01-11 13:20] LABS: Blood Urea Nitrogen 31 mg/dl (9-20); Creatinine Clearance Estimated 77 mL/min (50-200); Estimated Glomerular Filt Rate 42 ml/min (>60); GFR (African American) 51 ML/MIN (>60); Hemoglobin A1C > 14.0 % (4.0-6.0)
[2021-01-11 13:21] LABS: Anion Gap 12.9 mEq/L (5-15); Calcium 9.2 mg/dl (8.4-10.2); Carbon Dioxide 20 mmol/L (22.0-30.0)
[2021-01-11 13:22] LABS: Glucose 441 mg/dl (74-100)
--- NOTE | 2021-01-11 13:22 | PC.NURSE ---
1322-spoke with christine mueller in lab with critical lab value glucose 441 on [address]; repeated and verified.
[2021-01-11 15:10] VITALS: BP 145/85; PULSE 73; RESP 18
== END 2021-01-11 15:10 | disposition home or self-care (01) ==
LOC: INF 12:59
PROVIDERS: Visit Provider Internal Medicine Adolescent Medicine
DX: E11.9 Type 2 diabetes mellitus without complications (principal)
CPT/HCPCS: 80048; 83036; 96360; 96361

== ENCOUNTER → 2021-02-27 07:26 | Outpatient (CLI) | payer MEDICARE, MEDICAID, SELFPAY ==
--- NOTE | 2021-02-27 07:26 | NM_ITS ---
APPROVED REPORT Exam: Nuclear Stress Test Indication: Chest pain, CAD, HTN, DM, High cholesterol, Family history Patient Location: Outpatient Stress Tech: Nirmala Gold [place] Tech:Joya Gonsalez, ARRT, RT (R)(N) Ht: 5 ft 8 in Wt: 230 lbs HR: 85 bpm BP: 138/92 mmHg BSA: 2.17 m2 BMI: 34.9 History: Chest pain, CAD, HTN, DM, High cholesterol, Family history Procedure: Patient exercised on Rufino protocol 8:59 minutes and sec, resting heart rate 85 bpm, resting blood pressure 138/92 mmHg, with exercise maximum heart rate achived was 146 bpm which is 81 % of the maximum predicted heart rate and blood pressure was 174/88 mmHg. Test was stopped due to SOA. Patient denied any complaint of chest pain. Patient has good exercise capacity, achieved 10.1 METs of workload on treadmill, the blood pressure response to exercise was Adequate. Electrocardiogram Resting electrocardiogram showed sinus rhythm nonspecific ST-T changes, with exercise there is additional millimeter ST segment depression noted from the baseline EKG. The EKG portion of the exercise Myoview is nondiagnostic due to baseline abnormal EKG. Cardiac Stress and Resting SPECT Images: Cardiac Stress and Resting SPECT images were obtained using technetium 99m Myoview 32.6 mCi stress and 10.63 mCi at rest. Gated SPECT for analysis of segmental wall motion and calculation of the ejection fraction also done. Cardiac stress and resting SPECT images show moderate sized area of decreased tracer activity in the inferior and posterior basal wall which partially improves on the resting images suggestive of mixed ischemia and scar, computer derived ejection fraction is 42% with moderate inferior and posterior basal wall hypokinesis. Right ventricle is mildly enlarged with normal contractility. Conclusion: 1. The EKG portion of the exercise Myoview is nondiagnostic, patient has good exercise capacity achieved 10.1 METs of workload on treadmill, the blood pressure response to exercise was adequate, there was no exercise-induced chest discomfort, test was stopped due to shortness of breath. 2. Scintigraphic evidence of moderate sized area of mixed ischemia and scar involving the inferior and posterior basal wall, computer derived ejection fraction is 42% with segmental wall motion abnormalities described above, right ventricle is mildly enlarged with normal contractility. 3. Abnormal exercise Myoview study. Electronically signed by : Dayday Justice MD 02/27/2021 21:36:40
--- NOTE | 2021-02-27 07:38 | CA_ITS ---
APPROVED REPORT EXAM: Comprehensive 2D, Doppler, and color-flow Echocardiogram Sorter/Assay Tech: BRITANY Robertson, RVS Ht: 5 ft 9 in Wt: 228lbs BSA: 2.18 BP: 153/93 mmHg Indications: CAD-stent, CP, SOB, Hx-kidney transplant, Exsmoker, DM 2D Dimensions IVSd 1.32 cm LVEF (Visual) 82.80 % PWd 1.02 cm LA Volume 33.90 mL LVDd 5.47 cm LA Volume Index 15.60 mL/m2 (M/F) 16-34 LVDs 2.62 cm Left Atrium 3.44 cm LVOT 2.17 cm (M/F) 1.5-2.5 M-Mode Dimensions LA Diam 3.47 cm (1.9-4.0) Ao Diam 3.35 cm (2.0-3.7) EPSs 0.30 cm TAPSE 1.75 (<1.7) LV Diastology E Decel Time 213.00 (160-240 msec) E/A Ratio 1.19 MED E' 7.30 (< 7 cm/sec) MED A' 10.80 cm/s E'/MED E' Ratio 9.60 (>14) LAT E' 8.90 (<10 cm/sec) LAT A' 13.70 cm/s E/LAT E' Ratio 7.88 (>14) Aortic Valve LVOT Max 95.00 (70-110 cm/s) LVOT VTI 14.24 cm AoV Peak Chuck. 113.00 (50-130 cm/s) AO Peak GR. 5.10 mmHg AO Mean GR. 2.50 (<5 mmHg) AO VTI 19.04 (18-25 cm) MERI (VTI) 2.77 (2.5-4.5 cm2) Mitral Valve MV E Max Chuck. 70.00 (40-130 cm/s) MV A Velocity 59.00 (40-130 cm/s) E/A Ratio 1.19 MV Decel. Time 213.00 (160-240 ms) MV PHT 62.00 ms Pulmonary Valve PV Peak Velocity 78.00 (50-150 cm/s) Tricuspid Valve TR P. Velocity 183.00 cm/s RAP Estimate 10.00 mmHg RVSP 23.50 mmHg Left Ventricle Left atrium is mildly enlarged, left ventricle is normal size, left ventricle wall thickness is upper limit of normal, visually estimated ejection fraction 55% with no regional wall motion abnormality, diastolic parameters are inconclusive. Right Ventricle Right atrium and right ventricle are normal size and contractility. Aortic Valve Aortic valve is minimally thickened and fibrosed, there is no aortic stenosis or aortic insufficiency. Mitral Valve Mitral valve is grossly normal, there is trace mitral regurgitation. Tricuspid Valve Tricuspid grossly normal, there is trace tricuspid regurgitation, tricuspid regurgitation jet velocity is inadequate for calculation of the right ventricular systolic pressure. Pulmonic Valve Pulmonic valve is poorly visualized. Great Vessels Aortic root is normal size. Inferior vena cava is poorly visualized. Pericardium No significant pericardial effusion noted. Conclusion 1. Mildly enlarged left atrium, normal left ventricular size, visually estimated ejection fraction 55% with no regional wall motion abnormality, diastolic parameters are inconclusive. 2. Trace mitral and tricuspid regurgitation. 3. No significant pericardial effusion noted. Electronically signed by : Dayday Justice MD 02/27/2021 19:14:50
--- NOTE | 2021-02-27 09:14 | HMH.ITSHM ---
Current Home Medications as stated by this patient Too Castellano or phlebotomy services representative. []TRAZODONE TACROLIMUS PREDNISONE PANTOPRAZOLE OMEGA 3 MYCOPHONOLATE MAGNESIUM LOSARTAN HYDRALAZINE FAMOTIDINE CORTICOTROPIN CLOPIDOGREL BUPROPION BISOPROLOL ATORVASTATIN FLUTICASONE COLCRYS
== END ==
PROVIDERS: PCP Internal Medicine Adolescent Medicine; Visit Provider Urology
DX: R06.00 Dyspnea, unspecified; I24.9 Acute ischemic heart disease, unspecified; I10 Essential (primary) hypertension; E13.69 Other specified diabetes mellitus with other specified complication; Z72.0 Tobacco use; Z94.0 Kidney transplant status; Z95.5 Presence of coronary angioplasty implant and graft
CPT/HCPCS: 78452; 93017; 93306; A9502

== ENCOUNTER → 2021-03-06 12:00 | Outpatient (CLI) | payer MEDICARE, SELFPAY ==
[2021-03-06 12:42] LABS: Basophils % 0.3 % (0.1-2.0); Eosinophils % 0.4 % (0.1-12.0); Hematocrit 42.5 % (42.0-52.0); Hemoglobin 13.6 g/dL (14.1-18.0); Lymphocytes # 1.6 K/mm3 (0.7-4.5); Lymphocytes % 16.3 % (10-50); Mean Corpuscular HGB Conc 31.9 g/dL (31.8-35.4); Mean Corpuscular Hemoglobin 27.8 pg (27.0-31.2); Mean Corpuscular Volume 87.2 fl (80-94); Mean Platelet Volume 8.2 fl (7.4-10.4); Monocytes # 0.7 K/mm3 (0.1-1.0); Monocytes % 7.5 % (1.7-9.3); Neutrophils # 7.3 K/mm3 (1.8-7.8); Neutrophils % 75.5 % (37.0-80.0); Platelet Count 109 K/mm3 (142-424); Red Blood Count 4.88 M/mm3 (4.60-6.20); Red Cell Distribution Width 14.5 % (11.5-17.5); White Blood Count 9.7 K/mm3 (4.8-10.8)
[2021-03-06 13:08] LABS: Hemoglobin A1C 9.5 % (4.0-6.0)
[2021-03-06 13:49] LABS: Chloride 109 mmol/L (98-107); Potassium 4.5 mmoL/L (3.5-5.1); Sodium 141 mmol/L (136-145)
[2021-03-06 13:52] LABS: Anion Gap 10.5 mEq/L (5-15); Blood Urea Nitrogen 28 mg/dl (9-20); Carbon Dioxide 26 mmol/L (22.0-30.0); Estimated Glomerular Filt Rate 42 ml/min (>60); GFR (African American) 51 ML/MIN (>60)
[2021-03-06 13:53] LABS: Calcium 9.2 mg/dl (8.4-10.2); Glucose 101 mg/dl (74-100)
== END ==
PROVIDERS: Visit Provider Internal Medicine Adolescent Medicine
DX: E11.65 Type 2 diabetes mellitus with hyperglycemia (principal)
CPT/HCPCS: 36415; 80048; 83036; 85025

== ENCOUNTER → 2021-05-15 18:22 | Outpatient (CLI) | payer MEDICARE, SELFPAY ==
[2021-05-15 19:07] LABS: Hemoglobin A1C 7.2 % (4.0-6.0)
[2021-05-15 19:31] LABS: Anion Gap 8.2 mEq/L (5-15); Blood Urea Nitrogen 36 mg/dl (9-20); Calcium 9.3 mg/dl (8.4-10.2); Carbon Dioxide 28 mmol/L (22.0-30.0); Chloride 105 mmol/L (98-107); Estimated Glomerular Filt Rate 35 ml/min (>60); GFR (African American) 43 ML/MIN (>60); Glucose 160 mg/dl (74-100); Potassium 4.2 mmoL/L (3.5-5.1); Sodium 137 mmol/L (136-145)
== END ==
PROVIDERS: Visit Provider Internal Medicine Adolescent Medicine
DX: E11.65 Type 2 diabetes mellitus with hyperglycemia (principal)
CPT/HCPCS: 80048; 83036

== ENCOUNTER → 2022-12-05 12:10 | Outpatient (CLI) | payer MEDICARE, MEDICAID, SELFPAY ==
--- NOTE | 2022-12-05 12:13 | XR_ITS ---
FINAL REPORT CLINICAL HISTORY: RT FOOT PAIN IN BOTTOM OF FOOT COMPARISON: None FINDINGS: RIGHT FOOT: Three views of the right foot were obtained. There is no acute fracture or dislocation. There are small calcaneal spurs. There is mild hallux valgus deformity. There is mild degenerative change at the first MTP. There is no soft tissue abnormality. IMPRESSION: No acute bony abnormality. Reviewed, Interpreted and Dictated by Trae Teran III, MD Transcribed by Ana Cain Authenticated and [facility]
== END ==
LOC: RAD 12:11
PROVIDERS: PCP Internal Medicine Adolescent Medicine; Visit Provider Nurse Practitioner Family
DX: M79.671 Pain in right foot (principal)
CPT/HCPCS: 73630

== ENCOUNTER → 2022-12-09 16:48 | Outpatient (CLI) | payer MEDICARE, MEDICAID, SELFPAY ==
[2022-12-09 17:13] LABS: Basophils % 0.3 % (0.1-2.0); Eosinophils # 0.1 K/mm3 (0.0-0.4); Eosinophils % 1.2 % (0.1-12.0); Hematocrit 46.1 % (42.0-52.0); Hemoglobin 14.6 g/dL (14.1-18.0); Lymphocytes # 1.7 K/mm3 (0.7-4.5); Lymphocytes % 13.4 % (10-50); Mean Corpuscular HGB Conc 31.7 g/dL (31.8-35.4); Mean Corpuscular Hemoglobin 26.4 pg (27.0-31.2); Mean Corpuscular Volume 83.4 fl (80-94); Mean Platelet Volume 8.2 fl (7.4-10.4); Monocytes # 0.8 K/mm3 (0.1-1.0); Monocytes % 6.3 % (1.7-9.3); Neutrophils # 9.7 K/mm3 (1.8-7.8); Neutrophils % 78.8 % (37.0-80.0); Platelet Count 133 K/mm3 (142-424); Red Blood Count 5.52 M/mm3 (4.60-6.20); Red Cell Distribution Width 14.2 % (11.5-17.5); White Blood Count 12.3 K/mm3 (4.8-10.8)
[2022-12-09 17:30] LABS: Hemoglobin A1C 7.2 % (4.0-6.0)
[2022-12-09 17:36] LABS: Chloride 108 mmol/L (98-107); Potassium 4.4 mmoL/L (3.5-5.1); Sodium 140 mmol/L (136-145)
[2022-12-09 17:39] LABS: Alanine Aminotransferase 29 U/L (12-78); Albumin Level 4.1 g/dl (3.5-5.0); Albumin/Globulin Ratio 1.8 (1.1-1.8); Alkaline Phosphatase 62 U/L (38-126); Anion Gap 14.4 mEq/L (5-15); Aspartate Amino Transferase 24 U/L (17-59); Bilirubin,Total 0.5 mg/dl (0.2-1.3); Blood Urea Nitrogen 45 mg/dl (9-20); Calcium 9.5 mg/dl (8.4-10.2); Carbon Dioxide 22 mmol/L (22.0-30.0); Estimated Glomerular Filt Rate 26 ml/min (>60); GFR (African American) 32 ML/MIN (>60); Globulin 2.3 g/dL (1.3-3.2); Glucose 131 mg/dl (74-100); Total Protein,Serum 6.4 g/dl (6.3-8.2)
[2022-12-09 17:42] LABS: Erythrocyte Sedimentation Rate 8 mm/hr (0-15)
[2022-12-09 17:44] LABS: C-Reactive Protein 8.5 mg/L (0-4)
== END ==
PROVIDERS: PCP Internal Medicine Adolescent Medicine; Visit Provider Nurse Practitioner Family
DX: E13.69 Other specified diabetes mellitus with other specified complication (principal); R07.9 Chest pain, unspecified; R60.9 Edema, unspecified; Z79.4 Long term (current) use of insulin
CPT/HCPCS: 36415; 80053; 83036; 85025; 85651; 86140

== ENCOUNTER → 2023-02-06 12:24 | Outpatient (CLI) | payer MEDICARE, MEDICAID, SELFPAY ==
[2023-02-06 13:43] LABS: Albumin Level 4.1 g/dl (3.5-5.0); Anion Gap 15.5 mEq/L (5-15); Blood Urea Nitrogen 48 mg/dl (9-20); Carbon Dioxide 22 mmol/L (22.0-30.0); Chloride 109 mmol/L (98-107); Estimated Glomerular Filt Rate 24 ml/min (>60); GFR (African American) 29 ML/MIN (>60); Glucose 114 mg/dl (74-100); Phosphorous 3.7 mg/dl (2.5-4.5); Potassium 4.5 mmoL/L (3.5-5.1); Sodium 142 mmol/L (136-145)
[2023-02-12 08:58] LABS: Tacrolimus (FK506), Blood 4.5
== END ==
PROVIDERS: PCP Internal Medicine Adolescent Medicine; Visit Provider Internal Medicine
DX: Z94.0 Kidney transplant status (principal)
CPT/HCPCS: 36415; 80069; 80197

== ENCOUNTER 2024-02-26 06:01 | Day surgery (SDC) | payer MEDICARE, SELFPAY ==
[2024-02-26 06:25] LABS: POC Glucose,Bedside 204 (70-110)
[2024-02-26 06:29] VITALS: BP 162/92; PULSE 82; RESP 18; TEMP 36.6; O2SAT 96; BMI 34.9
[2024-02-26 07:22] VITALS: BP 144/80; PULSE 75; RESP 16; O2SAT 95
--- NOTE | 2024-02-26 07:34 | EXP.OP.NOTE ---
Date of procedure: 02/26/24 Pre-op Diagnosis:: Left scalp cyst with abscess Post-op Diagnosis:: Same Procedure performed:: Incision and drainage/debridement of left scalp cyst with abscess Surgeon:: Arcadio Mcgowan MD Anesthesia: local Estimated blood loss (mL): 5 Operative findings:: Necrotic/abscessed cyst cavity Operative note:: After informed consent was obtained the patient was taken to the procedure room. His left mid/lateral scalp was prepped and draped in a sterile fashion. After infiltration with local anesthetic electrocautery was utilized to excise the skin overlying the central portion of the cyst cavity. Necrotic/abscessed cyst material was removed with a combination of sharp dissection, blunt dissection, and electrocautery. Electrocautery was utilized to achieve hemostasis. A pressure dressing was applied and the patient was discharged home in good condition. Condition: stable Disposition: no change Specimens:: None for pathology Complications:: No immediate
== END 2024-02-26 07:32 | disposition home or self-care (01) ==
PROVIDERS: PCP Internal Medicine Adolescent Medicine; Visit Provider Surgery
PROC: (CPT 10060; principal; 2024-02-26 07:00)
DX: L02.811 Cutaneous abscess of head [any part, except face] (principal)
CPT/HCPCS: 10060; 82962

== ENCOUNTER 2024-07-16 14:39 | Outpatient (CLI) | payer MEDICARE, SELFPAY ==
[2024-07-16 15:22] LABS: Creatinine,Urine Random 54 mg/dL (Not Estab.)
[2024-07-16 15:58] LABS: Microalbumin/Creatinine Ratio 1280.9
== END 2024-07-16 23:59 | disposition home or self-care (01) ==
LOC: LAB 14:43
PROVIDERS: PCP Internal Medicine Adolescent Medicine; Visit Provider Internal Medicine Nephrology
DX: Z94.0 Kidney transplant status (principal)
CPT/HCPCS: 82043; 82570

== ENCOUNTER 2024-09-01 10:40 | Outpatient (CLI) | payer MEDICARE, SELFPAY ==
--- NOTE | 2024-09-01 | CA_ITS ---
APPROVED REPORT Exam: Pharmacologic Technologist: [place] Ht: 5 ft 9 in Wt: 243 lbs BSA: 2.24 m2 HR: 93 bpm BP: 137/84 mmHg Stress Test Details Test: Lexiscan HR Resting HR: 93 bpm Max Heart Rate (APMHR): 176.772181 bpm Max HR Achieved: 100 bpm Target HR (85% APMHR): 149.860712 bpm % of APMHR: 56.82 Recovery HR: 92 bpm BP Resting BP: 137.0/84.0 mmHg Max BP: 137.0/84.0 mmHg Recovery BP: 132.0/78.0 mmHg ECG Resting ECG: Normal sinus rhythm, inferior STT segment depression Stress ECG Conclusion Symptoms: None Arrhythmias/Ectopy: None ST-T Changes: < 1.[address] segment changes. Conclusion: Non-diagnostic Lexiscan stress. Electronically signed by : Ese Aaron MD 09/02/2024 12:06:48
--- NOTE | 2024-09-01 11:30 | NM_ITS ---
APPROVED REPORT Exam: Nuclear Stress Test Indication: CAD, 1 STENT, HX PR, HTN, DIABETES, HYPERLIPIDEMIA, FM HX, C.P., FATIGUE, DIZZINESS Patient Location: Outpatient Stress Tech: [place] Tech:Catrina Li, ARRT RT (R)(N)(M) Ht: 5 ft 8 in Wt: 241 lbs HR: 92 bpm BP: 137/84 mmHg BSA: 2.21 m2 TID: 1.14 BMI: 36.6 History: CAD, 1 STENT, HX PR, HTN, DIABETES, HYPERLIPIDEMIA, FM HX, C.P., FATIGUE, DIZZINESS Procedure: Patient received 0.4 mg of intravenous Lexiscan, resting heart rate 92 bpm, resting blood pressure 137/84 mmHg, with Lexiscan maximum heart rate achieved was 100 bpm which is % of the maximum predicted heart rate and blood pressure was 123/73 mmHg. With Lexiscan, patient denied any complaint of chest pain. Cardiac Stress and Resting SPECT Images: Cardiac Stress and Resting SPECT images were obtained using technetium 99m Myoview 32.9 mCi stress and 10.20 mCi at rest. Resting and stress imaging in supine and prone positions demonstrate a medium-sized, moderate, reversible perfusion defect in the basal to mid inferior LV wall. Gated imaging demonstrates normal global LV systolic function. There is mild hypokinesis of the basal inferior LV wall. LVEF is calculated at 53%. Conclusion: Medium-sized, moderate, reversible perfusion defect in the basal to mid inferior LV wall. Findings are suggestive of reversible ischemia. Gated imaging demonstrates normal global LV systolic function. There is mild hypokinesis of the basal inferior LV wall. LVEF is calculated at 53%. Electronically signed by : Ese Aaron MD 09/02/2024 12:30:01
[2024-09-01] MEDS: ISOTOPE MYOVIEW (PER STUDY) 1 DOSE IV (12:38)
[2024-09-01] MEDS: SODIUM CHLORIDE 0.9% 10ML SYR (RAD ONLY) 10 ML IV ×2 (12:38)
[2024-09-01] MEDS: REGADENOSON 0.4MG/5ML SYRINGE 0.4 MG IV (12:38)
== END 2024-09-01 23:59 | disposition home or self-care (01) ==
PROVIDERS: PCP Internal Medicine Adolescent Medicine; Visit Provider Physician Assistant
DX: I25.10 Atherosclerotic heart disease of native coronary artery without angina pectoris (principal); R42 Dizziness and giddiness; R06.02 Shortness of breath
CPT/HCPCS: 78452; 93017; 93018; A9502; J2785

== ENCOUNTER 2024-09-15 08:25 | Day surgery (SDC) | payer MEDICARE, SELFPAY ==
[2024-09-15] VITALS (11 sets, daily range): BP systolic 99–150; BP diastolic 60–92; PULSE 91–122; RESP 18–20; TEMP 37.1; O2SAT 94–96; BMI 34.5
--- NOTE | 2024-09-15 07:04 | IR_ITS ---
APPROVED REPORT Patient Location: Outpatient PROCEDURES Left heart catheterization Selective coronary angiogram INDICATION Known coronary artery disease, Abnormal Myoview Informed consent was obtained prior to the procedure. COMPLICATIONS NONE Estimated Blood Loss: LESS THAN 10 ML TECHNIQUE One percent lidocaine used to anesthetize the right anterior aspect of the wrist. The right radial artery was accessed via the Seldinger technique. A 6 Georgian sheath was placed in the right radial artery. 2.5 mg of Verapamil, 800 mcg of nitroglycerin, 1mg Lidocaine and 5000 U Heparin were given through the arterial sheath. The 6 Georgian JL 3 guide catheter was also used to perform left heart catheterization selective coronary angiogram. At the end of the procedure the sheath was removed good hemostasis was achieved using Traclet band, patient was transferred to the postop holding area in stable condition. ANGIOGRAPHIC RESULTS The left main artery Normal The left anterior descending artery Has a stent in the ostial proximal segment which is widely patent free of in-stent restenosis with excellent proximal distal transitioning. The remaining LAD is widely patent there is a 30% mid LAD myocardial bridge The circumflex artery Large dominant normal The right coronary artery Vestigial normal The DEL RIO ventriculogram reveals Not performed The left ventricular end-diastolic pressure 10 mmHg IMPRESSION Widely patent proximal LAD as described above with normal angiographic dominant circumflex artery Normal LVEDP PLAN 1. Medical management Electronically signed by : Roel Crandall MD 09/15/2024 10:57:37
[2024-09-15 08:59] LABS: Chloride 112 mmol/L (98-107); Potassium 4.2 mmoL/L (3.5-5.1); Sodium 141 mmol/L (136-145)
[2024-09-15 09:02] LABS: Anion Gap 18.2 mEq/L (5-15); Blood Urea Nitrogen 40 mg/dl (9-20); Carbon Dioxide 15 mmol/L (22.0-30.0); Creatinine Clearance Estimated 51 mL/min (50-200); Estimated Glomerular Filt Rate 25 ml/min (>60); GFR (African American) 30 ML/MIN (>60)
[2024-09-15 09:03] LABS: Calcium 10.1 mg/dl (8.4-10.2); Glucose 149 mg/dl (74-100)
[2024-09-15 09:05] LABS: Basophils % 0.1 % (0.1-2.0); Eosinophils % 0.2 % (0.1-12.0); Hemoglobin 14.6 g/dL (14.1-18.0); Lymphocytes # 2.4 K/mm3 (0.7-4.5); Lymphocytes % 17.8 % (10-50); Mean Corpuscular Hemoglobin 27.8 pg (27.0-31.2); Mean Corpuscular Volume 81.9 fl (80-94); Mean Platelet Volume 9.1 fl (7.4-10.4); Monocytes % 7.1 % (1.7-9.3); Neutrophils % 74.2 % (37.0-80.0); Platelet Count 147 K/mm3 (142-424); Red Blood Count 5.25 M/mm3 (4.60-6.20); Red Cell Distribution Width 13.1 % (11.5-17.5); White Blood Count 13.5 K/mm3 (4.8-10.8)
[2024-09-15] MEDS: NITROGLYCERIN 800MCG/8ML SYR (CATH LAB) 800 MCG IA (10:19)
[2024-09-15] MEDS: LIDOCAINE 1% 10ML MDV 10 ML IJ (10:19)
[2024-09-15] MEDS: VERAPAMIL 2.5MG/ML 2ML VIAL 2.5 MG IV (10:19)
[2024-09-15] MEDS: diphenhydrAMINE 50MG/ML VIAL 50 MG IV (10:20)
[2024-09-15] MEDS: 0.9 % SODIUM CHLORIDE 500 ML 25 ML IV (10:20)
[2024-09-15] MEDS: HEPARIN 1,000 UNITS/ML 10ML VIAL (CATH LAB) 5000 UNIT IV (10:20)
[2024-09-15] MEDS: HEPARIN 1,000 UNITS/500ML NS (CATH LAB) 3000 UNIT IV (10:20)
[2024-09-15] MEDS: MIDAZOLAM HCL 1MG/ML 5ML VIAL 1 MG IV (10:44)
[2024-09-15] MEDS: FENTANYL 100MCG/2ML VIAL 50 MCG IV (10:45)
[2024-09-15] MEDS: IOPAMIDOL-370 (76%);100ML BOTTLE 9 ML IV (13:00)
== END 2024-09-15 14:10 | disposition home or self-care (01) ==
PROVIDERS: PCP Internal Medicine Adolescent Medicine; Visit Provider Internal Medicine
DX: I25.118 Atherosclerotic heart disease of native coronary artery with other forms of angina pectoris (principal); R93.1 Abnormal findings on diagnostic imaging of heart and coronary circulation; Z95.5 Presence of coronary angioplasty implant and graft; I25.2 Old myocardial infarction; E11.9 Type 2 diabetes mellitus without complications; E78.5 Hyperlipidemia, unspecified; Z87.891 Personal history of nicotine dependence; Z82.49 Family history of ischemic heart disease and other diseases of the circulatory system; Z94.0 Kidney transplant status; Z79.4 Long term (current) use of insulin; Z79.85 Long-term (current) use of injectable non-insulin antidiabetic drugs; Z79.899 Other long term (current) drug therapy; Z79.52 Long term (current) use of systemic steroids; Z79.621 Long term (current) use of calcineurin inhibitor
CPT/HCPCS: 80048; 85025; 93454; 99152; C1725; C1760; C1769; J1200; J1644; J3010; Q9967

== ENCOUNTER 2025-05-25 15:04 | Outpatient (CLI) | payer MEDICARE, SELFPAY ==
[2025-05-25 15:24] LABS: Hematocrit 43.4 % (42.0-52.0); Hemoglobin 14.1 g/dL (14.1-18.0); Immature Granulocytes % 0.3 %; Mean Corpuscular HGB Conc 32.5 g/dL (31.8-35.4); Mean Corpuscular Hemoglobin 27.4 pg (27.0-31.2); Mean Corpuscular Volume 84.4 fl (80-94); Nucleated Red Blood Cells % 0 %; Platelet Count 119 K/mm3 (142-424); Red Blood Count 5.14 M/mm3 (4.60-6.20); Red Cell Distribution Width-SD 41.1 fL; White Blood Count 11.5 K/mm3 (4.8-10.8)
[2025-05-25 15:55] LABS: Alanine Aminotransferase 24 U/L (12-78); Albumin Level 4.3 g/dl (3.5-5.0); Albumin/Globulin Ratio 1.9 (1.1-1.8); Alkaline Phosphatase 73 U/L (38-126); Anion Gap 12.6 mEq/L (5-15); Aspartate Amino Transferase 19 U/L (17-59); Bilirubin,Total 0.8 mg/dl (0.2-1.3); Blood Urea Nitrogen 54 mg/dl (9-20); Calcium 9.4 mg/dl (8.4-10.2); Carbon Dioxide 18 mmol/L (22.0-30.0); Chloride 110 mmol/L (98-107); Creatinine,Serum 3.00 mg/dl (0.66-1.25); Estimated Glomerular Filt Rate 23 ml/min (>60); GFR (African American) 28 ML/MIN (>60); Globulin 2.3 g/dL (1.3-3.2); Glucose 253 mg/dl (74-100); Potassium 4.6 mmoL/L (3.5-5.1); Sodium 136 mmol/L (136-145); Total Protein,Serum 6.6 g/dl (6.3-8.2)
[2025-05-25 16:12] LABS: Free Thyroxine Index 2.4 ug/dL (5.93-13.13); T4 (Thyroxine) 6.8 ug/dl (5.53-11.0); Triiodothryronine (T3) Uptake 35 % (23.5-40.5)
--- OUTSIDE RECORDS SUMMARY | 2025-05-25 16:19 | XMS_ITS | Clinical Summary ---
Author Organization [facility] Address [address] [place] [address] Care Team Providers Care Process Checker Name Role Phone Unavailable Primary Care Provider Unavailabl e Social History Tobacco Use Types Packs/Day Years Used Date Smoking Tobacco: Never Assessed Sex and Gender Information Value Date Recorded Sex Assigned at Not on file Legal Sex Male 5:07 PM EDT Gender Identity Not on file Sexual Orientation Not on file Plan of Treatment Health Maintenance Due Date Last Done Comments HIV Screening 1980 Hepatitis C Screening 1980 Lipid Panel 1980 Medicare Annual Wellness (AWV) 1980 MMR Vaccines (1 of 1 - Stand mychal series) 1981 Hepatitis B Screening 1998 DTaP/Tdap/Td Vaccines (1 - Tdap) 1999 Hepatitis B Vaccines (1 of 3 - 19+ 3-dose series) 1999 HPV Vaccines (1 - 3-dose SCD M series) 2007 Depression Risk Screening 06/09/2024 SDOH Screening 06/09/2024 COVID-19 Vaccine (1 - 2024-2 6 season) 2025 Influenza Vaccine (#1) 2025 Zoster Vaccines (1 of 2) 2030 HIB Vaccines Aged Out No longer eligi ble based on patient's age to complete this topic Hepatitis A Vaccines Aged Out No long er eligible based on patient's age to complete this topic IPV Vaccines Aged Out No longer eligi ble based on patient's age to complete this topic Meningococcal B Vaccine Aged Out No l onger eligible based on patient's age to complete this topic Meningococcal Vaccine Aged Out No todd marlyn eligible based on patient's age to complete this topic Pneumococcal Vaccine Aged Out No long er eligible based on patient's age to complete this topic Rotavirus Vaccines Aged Out No longer eligible based on patient's age to complete this topic Insurance Peter LIANA GUZMAN [id number] MEDICARE
--- OUTSIDE RECORDS SUMMARY | 2025-05-25 16:19 | XMS_ITS | Clinical Summary ---
Author Organization [facility] Address [address] [facility] [place] [address] Care Team Providers Care Cabinet And Trim Installer Name Role Phone Historical, Centricity Primary Care Provider Bambi vailable Source Comments This information has been disclosed to you from confidential records protectedfrom disclosure by state law. You shall make no further disclosure of thisinformation without the specific, written, and informed release of theindividual to whom it pertains, or as otherwise permitted by law. A generalauthorization for the release of medical or other information is not sufficientfor the purposes of therelease of HIV test results or diagnoses. [id number] Health Allergies Active Allergy Reactions Criticality Noted Date Comments Pseudoephedrine Hcl Other (See Comments) Stopped urinating Medications hydrALAZINE (APRESOLINE) 100 MG tablet Take 100 mg by mouth 3 times a day. Active atenolol (TENORMIN) 50 MG tablet daily. Active cloNIDine (CATAPRES) 0.2 MG tablet Take by mouth 3 times a day. Active furosemide (LASIX) 80 MG tablet daily. Active calcitRIOL (ROCALTROL) 0.5 MCG capsule Take by mouth. Daily/line - per centricity Active lisinopril (PRINIVIL,ZESTR IL) 20 MG tablet Take by mouth daily. Active allopurinol (ZYLOPRIM) 100 MG tablet Take by mouth daily. Take 2 tabs Active colchicine (COLCRYS) 0.6 mg tablet Take by mouth daily. Active sertraline (ZOLOFT) 100 MG tablet Take by mouth daily. Active CALCIUM ACETATE (PHOSLO ORAL) Take 1 capsule by mouth 3 times a day. Active Active Problems Problem Noted Date Diagnosed Date Essential hypertension 08/12/2011 Overview (03/09/2015): ICD-10 Transition End stage renal disease 08/12/2011 Other specified pre-operative examination 2011 Family History Medical History Relation Comments Diabetes Father Hypertension Father Chronic fatigue Mother Rheum arthritis Mother Relation Status Comments Father age 51 Mother age 55 Sister ages 29 & 23 - b oth healthy Social History Tobacco Use Types Packs/Day Years Used Date Smoking Tobacco: Former Cigarettes Comments:prior smoker, start ed smokin, smoked - 15 years, cigarette use: 1, smoked - 15 packs/year, 08/06/2011 Alcohol Use Standard Drinks/Week Comments Yes 0 (1 standard drink = 0.6 oz pur e alcohol) socially, 08/06/2011 Sex and Gender Information Value Date Recorded Sex Assigned at Not on file Legal Sex Male 11:36 PM EST Gender Identity Not on file Sexual Orientation Not on file Last Filed Vital Signs Vital Sign Reading Time Taken Comments Blood Pressure 92/53 08/13/2011 10:43 AM EST Pulse 72 08/13/2011 10:43 AM EST Temperature - - Respiratory Rate - - Oxygen Saturation - - Inhaled Oxygen Concentration - - Weight 96.1 kg (211 lb 12.8 oz) 012 10:43 AM EST Height 172.7 cm (5' 8 ) 08/06/2011 10:4 2 AM EST Body Mass Index 32.2 08/06/2011 10:42 AM EST Plan of Treatment Not on file Insurance [employer] Member Subscriber Plan / Payer (Ef fective 2012-Present) Name:Too Castellano Member ID:Not on file Relation to Subscriber:Self Name:Too Castellano Subscriber ID:Not on file Payer ID:[id number] Group ID:Not on file Type:Transplant BLUE MEDICARE SUPPLEMENT Care Teams Cabinet And Trim Installer Relationship Specialty Start Date End Date Historical, Centricity PCP - General 08/13/11
--- OUTSIDE RECORDS SUMMARY | 2025-05-25 16:19 | XMS_ITS ---
Author Organization [facility] ([facility]) Address [address] [place] [id number] Care Team Providers Care Drag Sawyer Name Role Phone Unavailable Unavailable Unavailable Allergies, Adverse Reactions, Alerts This patient has no known allergies or adverse reactions. Problems This patient has no known problems.
[2025-05-25 16:24] LABS: Thyroid Stimulating Hormone 1.94 uIU/mL (0.465-4.68)
[2025-05-25 16:26] LABS: Thyroid Stimulating Hormone 1.92 uIU/mL (0.465-4.68)
[2025-05-25 17:53] LABS: Hemoglobin A1C 7.5 % (4.0-6.0)
[2025-05-27 12:26] LABS: Testosterone,Total 310 ng/dL (264-916)
== END 2025-05-25 23:59 | disposition home or self-care (01) ==
LOC: LAB 15:05
PROVIDERS: PCP Internal Medicine Adolescent Medicine; Visit Provider Internal Medicine Adolescent Medicine
DX: E11.22 Type 2 diabetes mellitus with diabetic chronic kidney disease (principal); N18.6 End stage renal disease; R53.83 Other fatigue
CPT/HCPCS: 36415; 80053; 83036; 84403; 84436; 84443; 84479; 85025